=== PATIENT | female | born 1950 | race Caucasian/White ===

== ENCOUNTER → 2017-02-02 | Day surgery (SDC) | payer OTHER, MEDICARE ==
[~2017-02-02] MED LIST: CARAFATE1 G PO; LASIX20 MG PO; MOBIC15 MG PO; NEURONTIN300 MG PO; NEXIUM PO; TOPAMAX PO; TRAZODONE HCL100 MG PO
--- NOTE | ~2017-02-02 | OR ---
Unit #: [id number] #: [id number] Patient: ALAN BEACH [id number] [address] [place], [place] [address] [id number] MR#: [id number] NAME: ALAN BEACH ROOM: Date of Procedure: 02/02/2017 Admission Date: 02/02/2017 Surgeon: Brad Harrell M.D. : 1950 Attending Physician: Brad Harrell M.D. Referring Physician: Brad Harrell M.D. Primary Care Physician: Lalita Maldonado M.D. OPERATIVE REPORT PROCEDURES PERFORMED Esophagogastroduodenoscopy with biopsy; colonoscopy with biopsy. INDICATIONS FOR PROCEDURE The patient is a 66-year-old with average risk for colorectal cancer, also with severe constipation, chronic severe GERD, undergoing evaluation with upper endoscopy and colonoscopy. MEDICATIONS Monitored anesthesia. POSTOPERATIVE FINDINGS 1. Hiatal hernia. 2. Esophageal stricture with esophagitis. Dilation carried out with a balloon to 18 mm. 3. Mild gastritis. Biopsies were taken to look for H. pylori. 4. Normal duodenum and distal duodenum. 5. Polyp, descending colon, 3 mm, removed using biopsy forceps. 6. Rest of the colon to cecum was normal. 7. Prep was poor particularly in cecum and ascending colon, where despite extensive lavaging, it was not very clear. 8. Internal hemorrhoids. PLAN Repeat colonoscopy in 5 years. PPIs to continue. Add Carafate for now. DESCRIPTION OF PROCEDURE The patient was explained of the procedure, risks, and benefits along with risks and benefits of anesthesia. She was brought to the endoscopy room. Propofol anesthesia was given. Bite block was placed. The scope was passed down the mouth and esophagus, stomach, duodenum, and distal duodenum. Findings as described. Biopsies taken. Esophageal balloon dilation was then carried out successfully. The scope was gently pulled out. She tolerated it well. At this time, she was turned around and repositioned for colonoscopy. Rectal exam was done, which was normal. Colonoscope was lubricated, passed up the rectum, advanced under direct vision all the way to the cecum. Cecum was identified by ileocecal valve and appendiceal orifice. I then started to pull the scope out carefully looking. Cecum and ascending colon were not very clearly visualized. Polyp seen in descending colon was removed using biopsy forceps. I retroflexed in the Unit #: [id number] #: [id number] Patient: ALAN BEACH rectum, small hemorrhoids seen. Scope was gently pulled out. She tolerated it well. No major complications were seen. Dictated by... Gabriela Shi/ric TD: 02/03/2017 02:26 JOB #: [id number] OPERATIVE REPORT Page 1 of 1 X Brad Harrell MD X PROCEDURE OPERATIVE NOTE
== END | disposition home or self-care (01) ==
LOC: COPS 09:26
DX: D12.4 Benign neoplasm of descending colon (principal); K29.50 Unspecified chronic gastritis without bleeding; K22.2 Esophageal obstruction; K20.9 Esophagitis, unspecified; K44.9 Diaphragmatic hernia without obstruction or gangrene; K64.8 Other hemorrhoids; J43.9 Emphysema, unspecified; K21.9 Gastro-esophageal reflux disease without esophagitis; G43.909 Migraine, unspecified, not intractable, without status migrainosus; M79.7 Fibromyalgia; Z88.5 Allergy status to narcotic agent; Z79.1 Long term (current) use of non-steroidal anti-inflammatories (NSAID); Z79.899 Other long term (current) drug therapy; Z90.710 Acquired absence of both cervix and uterus; Z98.51 Tubal ligation status
CPT/HCPCS: 88305; 88312